=== PATIENT | male | born 1975 | race Two or more races ===

== ENCOUNTER 2024-10-12 14:45 | Outpatient (RCR) | payer MEDICAID, SELFPAY | END 2024-10-23 23:59 | disposition home or self-care (01) | LOC: SCTC 14:45 | PROVIDERS: PCP Physician Assistant; Referring Provider Nurse Practitioner Family; Visit Provider Nurse Practitioner Family | DX: D69.6 Thrombocytopenia, unspecified (principal) | CPT/HCPCS: 99212; G0463 ==

== ENCOUNTER → 2024-11-15 | Outpatient (CLI) | payer MEDICAID, SELFPAY ==
--- NOTE | 2024-11-15 09:30 | XR_ITS ---
Examination: CT abdomen with intravenous contrast CT pelvis with intravenous contrast 2-D coronal reconstructions 2-D sagittal reconstructions Date and time of exam:November 15, 2024 0925 hours Comparison November 21, 2005 INDICATIONS: Diagnosis thrombocytopenia, unspecified, leukopenia 3 years. CTDI: vol (mGy) 13.5 DLP: (mGycm) 162 Technique: Multiple axial sections of the abdomen and pelvis have been obtained. 64 slice high-resolution scanner used. 3 mm axial sections have been obtained, post intravenous injection 60 cc [id number] 2-D sagittal, coronal reconstructions obtained. Low dose protocols were performed. One or more of the following dose reduction techniques were used; automated exposure control, adjustment of the mA and/or KV according to patient size, use of iterative reconstruction technique. Findings: No focal liver or splenic lesions No gallstones No pancreatic or adrenal mass Possible tiny 1 to 2 mm bilateral renal calculi, assessment is difficult with contrast No abdominal or pelvic lymphadenopathy Aorta is not enlarged Absent appendix No bowel obstruction No diverticulitis Urinary bladder wall thickening up to 7 mm Right inguinal hernia No significant prostatomegaly IMPRESSION: Negative for hepatosplenomegaly Possible tiny 1 to 2 mm bilateral renal calculi, no hydronephrosis No abdominal or pelvic lymphadenopathy Urinary bladder wall thickening up to 7 mm, consider cystitis
== END | disposition home or self-care (01) ==
LOC: CCTX 09:07
PROVIDERS: PCP Physician Assistant; Referring Provider Nurse Practitioner Family; Visit Provider Nurse Practitioner Family
DX: N32.89 Other specified disorders of bladder (principal)
CPT/HCPCS: 74177; A4649; Q9967

== ENCOUNTER 2024-11-21 15:03 | Outpatient (RCR) | payer MEDICAID, SELFPAY | END 2024-11-22 23:59 | disposition home or self-care (01) | LOC: SCTC 15:03 | PROVIDERS: PCP Physician Assistant; Referring Provider Physician Assistant; Visit Provider Nurse Practitioner Family | DX: D69.6 Thrombocytopenia, unspecified (principal); N13.30 Unspecified hydronephrosis | CPT/HCPCS: 99212; G0463 ==

== ENCOUNTER 2025-05-24 14:29 | Outpatient (RCR) | payer MEDICAID, SELFPAY | END 2025-05-25 23:59 | disposition home or self-care (01) | LOC: SCTC 14:29 | PROVIDERS: PCP Physician Assistant; Referring Provider Physician Assistant; Visit Provider Nurse Practitioner Family | DX: D69.6 Thrombocytopenia, unspecified (principal); N32.89 Other specified disorders of bladder | CPT/HCPCS: 99212; G0463 ==